=== PATIENT | male | born 1995 | race Hispanic/Latino ===

== ENCOUNTER 2020-02-20 12:56 | Emergency (ER) | payer SELFPAY ==
[2020-02-20] MEDS ORDERED: Acetaminophen 500 MG TAB ONE (14:04)
[2020-02-20] MEDS ORDERED: Ibuprofen 200 MG TAB ONE (14:04)
== END 2020-02-20 14:10 | disposition home or self-care (01) ==
LOC: ERS 12:56
DX: M54.2 Cervicalgia (principal); V49.9XXA Car occupant (driver) (passenger) injured in unspecified traffic accident, initial encounter
CPT/HCPCS: 99283